=== PATIENT | female | born 1985 | race Asian ===

== ENCOUNTER 2020-02-26 19:35 | Emergency (ER) | payer OTHER ==
[~2020-02-26] VITALS: Ht 152.4 cm; Wt 49.9 kg
[2020-02-26 20:00] VITALS: BP 133/77
== END 2020-02-26 20:58 | disposition home or self-care (01) ==
LOC: ER 19:35
DX: R53.83 Other fatigue (principal); M79.10 Myalgia, unspecified site; J02.9 Acute pharyngitis, unspecified; Z88.0 Allergy status to penicillin; Z20.828 Contact with and (suspected) exposure to other viral communicable diseases